=== PATIENT | male | born 1960 | race Two or more races ===

== ENCOUNTER 2017-04-04 21:38 | Emergency (ER) | payer MEDICAID, OTHER ==
[~2017-04-04] VITALS: Ht 182.9 cm; Wt 88.5 kg
[2017-04-04] MEDS ORDERED: LORazepam 2MG/ML-1ML VIAL IV ONE (22:30)
[2017-04-04] MEDS ORDERED: SODIUM CHLORIDE 0.9% 2,000 ML IV ONE (22:45)
[2017-04-04 22:50] LABS: Basophils # (auto) 0 uL; Basophils % (auto) 0.4 % (0.0-2.0); Eosinophils # (auto) 0.2 uL; Eosinophils % (auto) 1.4 % (0.0-7.0); Hematocrit 48.9 % (41.0-53.0); Hemoglobin 16.1 g/dL (13.5-17.5); Lymphocytes # (auto) 2.3 uL; Lymphocytes % (auto) 22.1 % (10.0-50.0); Mean Corpuscular Hemoglobin 28.9 pg (28.0-32.0); Mean Corpuscular Hgb Conc. 32.9 g/dL (32.0-36.0); Mean Platelet Volume 9.5 fL (7.4-10.4); Monocytes # (auto) 0.8 uL; Monocytes % (auto) 8.1 % (0.0-12.0); Neutrophils # (auto) 7.1 uL; Platelet Count (auto) 267 10^3/uL (140-450); Red Cell Distribution Width 13.4 % (11.6-16.0); White Blood Cell 10.5 10^3/uL (4.4-10.8)
[2017-04-04 22:59] LABS: Albumin 4.5 g/dL (3.4-5.0); Alkaline Phosphatase 52 U/L (45-117); Anion Gap 14 (5-15); Aspartate Aminotransferase 56 U/L (15-37); BUN/Creatinine Ratio 23.4; Bilirubin, Total 1.2 mg/dL (0.2-1.0); Blood Urea Nitrogen 39 mg/dL (7-18); Calcium 10.1 mg/dL (8.5-10.1); Carbon Dioxide 24 mmol/L (21-32); Chloride 98 mmol/L (98-107); GFR African American 55 mL/min; GFR Non-African American 46 mL/min; Glucose 99 mg/dL (74-106); Potassium 3.4 mmol/L (3.5-5.1); Sodium 136 mmol/L (136-145); Total Protein 8.4 g/dL (6.4-8.2)
[2017-04-04 23:02] LABS: INR 0.99 (0.9-1.15); Partial Thromboplastin Time 24.4 sec (22.64-33.71); Prothrombin Time 10.7 sec (9.37-12.3)
[2017-04-04 23:26] LABS: B-Type Natriuretic Peptide 13.25 pg/mL (0-100)
[2017-04-04 23:27] LABS: Temperature: 22.7 C (20.0-25.0)
[2017-04-05] MEDS ORDERED: SODIUM CHLORIDE 0.9% 1,000 ML IV ONE (03:45)
[2017-04-05] MEDS ORDERED: POTASSIUM CHL 10% (20 MEQ/15ML) ORAL SOLN PO ONE (03:45)
[2017-04-05 04:27] VITALS: BP 114/69
[2017-04-05 04:30] LABS: Urine Blood Negative /uL (Negative); Urine Color Yellow (Yellow); Urine Glucose Normal (Normal); Urine Granular Cast FEW /lpf (0); Urine Hyaline Cast MANY /lpf (0 - 2); Urine Ketone TRACE (Negative); Urine Mucus FEW (None Seen); Urine Nitrite Negative (Negative); Urine RBC 49 /hpf (0 - 3); Urine Squamous Epithelial Cell FEW /hpf (<5)
[2017-04-05 04:33] LABS: Urine Bilirubin POSITIVE (Negative)
== END 2017-04-05 06:52 | disposition home or self-care (01) ==
LOC: ER 21:53
DX: T67.0XXA Heatstroke and sunstroke, initial encounter (principal); E86.0 Dehydration; X58.XXXA Exposure to other specified factors, initial encounter; Y92.89 Other specified places as the place of occurrence of the external cause
CPT/HCPCS: 36415; 71010; 80053; 81001; 83735; 83880; 84443; 84484; 85025; 85610; 85730; 93005; 96360; 96361